=== PATIENT | female | born 1945 | race Caucasian/White ===

== ENCOUNTER 2017-03-30 21:39 | Emergency (ER) | payer MEDICARE, OTHER ==
[~2017-03-30] VITALS: Ht 160 cm; Wt 81.6 kg
[~2017-03-30 21:39] MED LIST: ACET325T9 PO; ALPR0.5T6 PO; ASPI-630 PO; BETH25TA PO; CHOL500016 PO; CRESTOR20 MG PO; DILT180C29 PO; DULO60CA6 PO; FAMO20TA5 PO; FENO160T PO; FURO20TA3 PO; GABA-586 PO; HYDR-2766 PO; LEVO175T5 PO; LOSA100T6 PO; METO50TA2 PO; METO50TA29 PO; POTA20TA82 PO; SENN1TAB70 PO; TRAM50TA PO
--- NOTE | 2017-03-30 22:02 | PHYS DOC ---
Past Medical History Past Medical History: Anxiety, Dementia, Diabetes-Type II, Fibromyalgia, High Cholesterol, Hypertension, Hypothyroid, Other Additional Past Medical Histor: neuropathy Past Surgical History: Hip Replacement, Hysterectomy Additional Past Surgical Histo: R HIP REPLACEMENT Alcohol Use: None Drug Use: None Adult General Chief Complaint Chief Complaint: MECHANICAL FALL HPI HPI Patient is a 71 year old F who presents with a fall the toilet. Patient states she was sitting on the toilet and slid off hitting her head and landed on her bottom complaining of lower back pain. Patient states she pressed her life alert and lives at assisted living and they transported her here to the emergency room. Patient had no loss of consciousness. Patient is not on blood thinners. In the emergency room the patient complains of headache and lower back pain. Patient denies any other injuries to her extremity. Patient denies any chest pain or shortness of breath. Patient has no other complaints. Review of Systems Review of Systems GEN: Denies fevers, chills, sweats HEENT: Denies blurred vision, sore throat CV: Denies chest pain RESP: Denies shortness of air, cough GI: Denies n/v/d NEURO: Headache MSK: Lower back pain Allergies Allergies Allergies Coded Allergies Type Severity Reaction Last Updated Verified No Known Drug Allergies 04/29/16 No Physical Exam Physical Exam GEN.: No apparent distress. Alert and oriented. HEENT: Head is normocephalic, atraumatic, no obvious signs of trauma NECK: Supple. LUNGS: CTAB. HEART: RRR, S1, S2 present. Peripheral pulses intact ABDOMEN: Soft, nontender. Positive bowel sounds. EXTREMITIES: Without any cyanosis. NEUROLOGIC: Normal speech, normal tone PSYCHIATRIC: Normal affect, normal mood. SKIN: No ulcerations BACK: Positive tenderness palpation to the L-spine and sacrum midline Current Patient Data Vital Signs Vital Signs Date Time Temp Pulse Resp B/P (MAP) Pulse Ox O2 Delivery O2 Flow Rate FiO2 03/30/17 23:06 82 140/65 (90) 93 Room Air 03/30/17 21:45 98.3 18 98.3 EKG EKG [] Radiology/Procedures Radiology/Procedures CT head and C-spine: No obvious intracranial pathology or obvious C-spine fracture CT L-spine IMPRESSION: 1. L3 superior endplate compression deformity is favored to be chronic although please correlate with exam findings and if strong clinical suspicion for acute fracture consider MRI. 2. Degenerative changes. CT pelvis no others fracture[] Course & Med Decision Making Course & Med Decision Making Pertinent Labs and Imaging studies reviewed. (See chart for details) ED course: Patient was seen and examined in the emergency room CT the head/C-spine/L-spine/ pelvis were ordered 0015: Patient was reevaluated and she is feeling much better. Patient has no known prior history of an L3 compression fracture. On reexamination the patient has no midline tenderness over L3. Discussed options with the patient in regards to admitting her to the hospital and get an MRI of her L-spine tomorrow versus being discharged home and have her follow up as an outpatient. Patient states she feels much better and would like to go home and would follow up with her PCP to have the potential L3 compression fracture followed up. Patient understands all the risks including and disability. Patient states she believes her pain in her lumbar spine is related to her fibromyalgia and not from an acute fracture. Patient is stable for discharge. I recommended short- term follow-up with PCP in one to 2 days. I told the patient is symptoms get worse or pain is intolerable at home to return to the emergency room immediately. Patient did not want to be admitted for pain management. [] Dragon Disclaimer Dragon Disclaimer This electronic medical record was generated, in whole or in part, using a voice recognition dictation system. Departure Departure Impression: Primary Impression: Closed head injury Additional Impressions: Lower back pain Fall Disposition: 01 HOME, SELF-CARE Condition: IMPROVED Referrals: Danette MEADOWS MD (PCP) Patient Instructions: Back Pain, Adult, [id number], Concussion and Brain Injury, [id number] Additional Instructions: Please follow up with your family physician in regards to the possible L3 compression fracture within the next one to 2 days and return if symptoms get worse or pain is unbearable Problem Qualifiers DINO ESTRADA DO Mar 30, 2017 22:02
--- NOTE | 2017-03-30 23:03 | RAD ---
Indication: Pain after a fall. Technique: Noncontrast CT head was obtained. CT cervical spine includes axial images and coronal and sagittal reformatted images. Comparison is from May 04, 2016. One or more of the following individualized dose reduction techniques were utilized for this examination: 1. Automated exposure control 2. Adjustment of the mA and/or kV according to patient size 3. Use of iterative reconstruction technique Findings: Head: Ventricular prominence is out of proportion to the degree of sulcal prominence. There is no acute intracranial hemorrhage or extra-axial fluid collection. There is no mass effect or midline shift. There is mild probable small vessel ischemic disease. Adrian-white differentiation is preserved. Vascular calcifications are noted. The included paranasal sinuses and mastoid air cells are clear. Cervical spine: There is interbody fusion of C3 and C4. There is anterior cervical fusion of C4-C6. There is no perihardware lucency. There is no acute fracture or traumatic malalignment. Prevertebral soft tissues are within normal limits. Craniovertebral junction is unremarkable. Mild degenerative changes are noted. Lymph nodes along the cervical chains are presumed reactive. Carotid artery calcifications are noted. There is minimal apical emphysema. IMPRESSION: Head: 1. No acute intracranial findings. 2. Ventricular prominence is out of proportion to the degree of sulcal prominence. This may still be related to parenchymal volume loss although normal pressure hydrocephalus should be considered. 3. Probable small vessel ischemic disease. Cervical spine: 1. No evidence of an acute fracture or traumatic malalignment. 2. Fusion of C3-C6. 3. Mild degenerative changes. Electronically signed by: Caesar Medina MD (03/30/2017 10:59 PM) [facility]
--- NOTE | 2017-03-30 23:06 | RAD ---
Indication: Pain after fall. Technique: Axial images and coronal and sagittal reformatted images of the lumbar spine are provided. No comparison is available. One or more of the following individualized dose reduction techniques were utilized for this examination: 1. Automated exposure control 2. Adjustment of the mA and/or kV according to patient size 3. Use of iterative reconstruction technique Findings: There is mild compression deformity of L3 involving the superior endplate with loss of height less than 25 percent and without retropulsion. There is some endplate sclerosis, finding is more likely to be chronic although correlate with exam findings. No acute fracture is apparent. There is anterolisthesis at L4-L5 with bilateral L4 pars defects. There is scoliosis. No traumatic malalignment is apparent. Endplate degenerative changes and facet hypertrophy are noted. There is atheromatous disease in the abdominal aorta. There are diverticula in the included colon. IMPRESSION: 1. L3 superior endplate compression deformity is favored to be chronic although please correlate with exam findings and if strong clinical suspicion for acute fracture consider MRI. 2. Degenerative changes. Electronically signed by: Caesar Medina MD (03/30/2017 11:03 PM) [facility]
--- NOTE | 2017-03-30 23:08 | RAD ---
Indication: Pain after fall Technique: Axial images and coronal and sagittal reformatted images are provided. No comparison is available. One or more of the following individualized dose reduction techniques were utilized for this examination: 1. Automated exposure control 2. Adjustment of the mA and/or kV according to patient size 3. Use of iterative reconstruction technique Findings: There is streak artifact from right hip hardware. There is no definite pelvic fracture. There is no pelvic hematoma. Bladder is unremarkable. There are diverticula in the included colon. IMPRESSION: No definite pelvic fracture. Electronically signed by: Caesar Medina MD (03/30/2017 11:05 PM) [facility]
[2017-03-31] VITALS: BP 128/62
== END 2017-03-31 01:04 | disposition home or self-care (01) ==
LOC: ER 21:39
DX: M54.5 Low back pain (principal); E11.40 Type 2 diabetes mellitus with diabetic neuropathy, unspecified; E03.9 Hypothyroidism, unspecified; F03.90 Unspecified dementia, unspecified severity, without behavioral disturbance, psychotic disturbance, mood disturbance, and anxiety; E78.00 Pure hypercholesterolemia, unspecified; I10 Essential (primary) hypertension; M79.7 Fibromyalgia; F41.9 Anxiety disorder, unspecified; Z96.641 Presence of right artificial hip joint; Z90.710 Acquired absence of both cervix and uterus; W22.8XXA Striking against or struck by other objects, initial encounter; Y93.89 Activity, other specified; Y99.8 Other external cause status; Y92.89 Other specified places as the place of occurrence of the external cause
CPT/HCPCS: 70450; 72125; 72131; 72192; 99284-25

== ENCOUNTER → 2017-03-31 | Outpatient (CLI) | payer MEDICARE, OTHER ==
[2017-03-31] VITALS: BP 128/62
== END | disposition home or self-care (01) ==
LOC: PMGWOUND 08:58
PROVIDERS: ATTEND Preventive Medicine Undersea and Hyperbaric Medicine
DX: E11.621 Type 2 diabetes mellitus with foot ulcer (principal); L97.511 Non-pressure chronic ulcer of other part of right foot limited to breakdown of skin; I10 Essential (primary) hypertension; E03.9 Hypothyroidism, unspecified; M19.90 Unspecified osteoarthritis, unspecified site; G47.30 Sleep apnea, unspecified; F41.9 Anxiety disorder, unspecified; E78.5 Hyperlipidemia, unspecified; E78.00 Pure hypercholesterolemia, unspecified; E11.42 Type 2 diabetes mellitus with diabetic polyneuropathy; F03.90 Unspecified dementia, unspecified severity, without behavioral disturbance, psychotic disturbance, mood disturbance, and anxiety; Z86.73 Personal history of transient ischemic attack (TIA), and cerebral infarction without residual deficits; Z90.710 Acquired absence of both cervix and uterus; Z87.891 Personal history of nicotine dependence
CPT/HCPCS: 99213

== ENCOUNTER 2017-04-10 17:31 | Emergency (ER) | payer MEDICARE, OTHER ==
[~2017-04-10] VITALS: Ht 160 cm; Wt 81.6 kg
--- NOTE | 2017-04-10 18:30 | RAD ---
CT of the head without contrast, 04/10/2017: HISTORY: Fall, pain Comparison is made to a study from 05/04/2016. There is moderate cerebral atrophy. The ventricles are enlarged, but unchanged. While this may be related to the atrophy, the appearance does raise the possibility of normal pressure hydrocephalus. A similar appearance was present on the previous study. There is no shift of the midline structures. There is no evidence of acute intracranial hemorrhage or mass effect. Minimal bilateral deep white matter lucencies are unchanged and are compatible with chronic ischemic change. IMPRESSION: 1. Chronic findings as described above. 2. No acute intracranial abnormality is detected. CT of the cervical spine without contrast, 04/10/2017: There has been a previous anterior spinal fusion from C3 through C5 with a fixation plate and multiple screws in place. There is solid fusion of the vertebral bodies through this region. There is chronic reverse spondylolisthesis at C3-4. There is severe disc space narrowing at C5-6 with marginal spurring. There are moderate degenerative changes involving the facet joints bilaterally multiple levels. There is a mild anterolisthesis at C6-7 due to facet joint arthropathy. The combination of findings is causing mild central spinal stenosis at several levels, including C3-4, as well as moderate foraminal narrowing at multiple levels. No acute fracture or dislocation is identified. IMPRESSION: 1. Previous anterior spinal fusion and instrumentation from C3 through C5. 2. Moderately severe multilevel degenerative change as described above. 3. No acute bony abnormality is detected. Electronically signed by: Noble Zaragoza MD (04/10/2017 6:26 PM) [facility]
--- NOTE | 2017-04-10 18:39 | PHYS DOC ---
Past Medical History Past Medical History: Anxiety, Dementia, Diabetes-Type II, Fibromyalgia, High Cholesterol, Hypertension, Hypothyroid, Other Additional Past Medical Histor: neuropathy Past Surgical History: Hip Replacement, Hysterectomy Additional Past Surgical Histo: R HIP REPLACEMENT Alcohol Use: None Drug Use: None Adult General Chief Complaint Chief Complaint: MECHANICAL FALL HPI HPI 71-year-old female presenting the emergency department after having 2 falls in her wheelchair today. She comes in by EMS today. Patient denies having hit her head. She reports that she fell out of the wheelchair. She denies hitting her head however staff is concerned that she may have hit her head on the table. She does have pain in her neck that is in the on the paraspinal musculature of the right without midline tenderness. The pain is sharp moderate intermittent and without alleviating factors. Otherwise she denies chest pain or abdominal pain. Review of systems is negative for chest pain shortness of breath abdominal pain. All other review of systems is negative unless otherwise noted in history of present illness. ED course: 71-year-old female presenting to the emergency department today with neck pain and fall. On examination the head is atraumatic without any abrasions lacerations or ecchymosis. She has mild pain on the paraspinal tenderness on the right. The patient does not have midline tenderness. There are no step-offs abrasions ecchymosis or laceration of the cervical C-spine. The patient refused a cervical collar in the EMS and in the emergency department. When the daughter arrived and recommended the patient have a cervical collar until we can clear the patient. The patient continues to refuse. Head and neck CT ordered. Head CT and neck CT negative for acute pathology. No other evidence of injuries on secondary survey. Nontender extremities otherwise. Abdomen is soft and nontender. Lungs are clear to auscultation. I gave the patient a intramuscular shot of opioids for her pain here in the emergency department. The patient was then discharged to her [facility]. They were to return if their symptoms worsened or if they were concerned for any reason. [id number] discharge instructions and return precautions were given. Patient's questions were answered to their satisfaction. Patient is comfortable plan. Review of Systems Review of Systems SEE ABOVE. Current Medications Current Medications Current Medications Medications (Trade) Dose Ordered Sig/Zbigniew Start Time Stop Time Status Last Admin Dose Admin Hydromorphone HCl (Dilaudid) 0.5 mg 1X ONCE 04/10/17 19:30 04/10/17 19:31 DC Allergies Allergies Allergies Coded Allergies Type Severity Reaction Last Updated Verified No Known Drug Allergies 04/29/16 No Physical Exam Physical Exam SEE ABOVE Constitutional: Well developed, well nourished, no acute distress, non-toxic appearance. [] HENT: Normocephalic, atraumatic, bilateral external ears normal, oropharynx moist, no oral exudates, nose normal. Eyes: PERRLA, EOMI, conjunctiva normal, no discharge. [] Neck: Normal range of motion, no tenderness, supple, no stridor. [] Cardiovascular:Heart rate regular rhythm, no murmur Lungs & Thorax: Bilateral breath sounds clear to auscultation [] Abdomen: Bowel sounds normal, soft, no tenderness, no masses, no pulsatile masses. Skin: Warm, dry, no erythema, no rash. [] Back: No tenderness, no CVA tenderness. Extremities: No tenderness, no cyanosis, no clubbing, ROM intact, no edema. [] Neurologic: Alert and oriented X 3, normal motor function, normal sensory function, no focal deficits noted. Psychologic: Affect normal, judgement normal, mood normal. [] Current Patient Data Vital Signs Vital Signs Date Time Temp Pulse Resp B/P (MAP) Pulse Ox O2 Delivery O2 Flow Rate FiO2 04/10/17 19:21 80 04/10/17 17:31 98.3 20 110/65 (80) 94 Room Air 98.3 EKG EKG [] Radiology/Procedures Radiology/Procedures [] Course & Med Decision Making Course & Med Decision Making Pertinent Labs and Imaging studies reviewed. (See chart for details) [] Dragon Disclaimer Dragon Disclaimer This electronic medical record was generated, in whole or in part, using a voice recognition dictation system. Departure Departure Impression: Primary Impression: Fall Disposition: 01 HOME, SELF-CARE Condition: STABLE Referrals: Danette MEADOWS MD (PCP) Patient Instructions: Fall Prevention and Home Safety Additional Instructions: Thank you for allowing us to participate in your care today. Followup with your primary care physician in 3 days if your symptoms do not improve. Call your Primary Doctor tomorrow and inform them of your visit today. If you do not have a primary care provider you can ask for a list of our primary care providers. Return to the emergency department you have any new or concerning findings. This should be evaluated by the primary care physician and any necessary consulting services for continued management within a few days after discharge. Return to emergency room if you have any new or concerning symptoms including but not limited to fever, chills, nausea, vomiting, intractable pain, any new rashes, chest pain, shortness of air, uncontrolled bleeding, difficulty breathing, and/or vision loss. TITO VANCE MD Apr 10, 2017 18:39
[2017-04-10] MEDS ORDERED: HYDROmorphone 2 MG/ML VIAL IM ONE (19:30)
[2017-04-10 20:00] VITALS: BP 141/66
== END 2017-04-10 20:09 | disposition home or self-care (01) ==
LOC: ER 17:31
DX: M54.2 Cervicalgia (principal); F03.90 Unspecified dementia, unspecified severity, without behavioral disturbance, psychotic disturbance, mood disturbance, and anxiety; E11.40 Type 2 diabetes mellitus with diabetic neuropathy, unspecified; I10 Essential (primary) hypertension; E78.00 Pure hypercholesterolemia, unspecified; E03.9 Hypothyroidism, unspecified; M79.7 Fibromyalgia; W05.0XXA Fall from non-moving wheelchair, initial encounter; Y93.89 Activity, other specified; Y92.89 Other specified places as the place of occurrence of the external cause; Y99.8 Other external cause status
CPT/HCPCS: 70450; 72125; 96372; 99284; J1170